=== PATIENT | male | born 1960 | race Caucasian/White ===

== ENCOUNTER 2016-10-16 08:51 | Emergency (ER) | payer OTHER ==
[2016-10-16 08:59] VITALS: BP 153/97; PULSE 89; TEMP 97.5; BMI 28.1
--- NOTE | 2016-10-16 10:01 | PDOC ---
History of Present Illness - General Chief Complaint: Back Pain Stated Complaint: RT SIDE PAIN Time Seen by Provider: 10/16/16 09:23 History Source: Patient Exam Limitations: No Limitations - History of Present Illness Initial Comments: 10/16/16 10:23 Chief complaint: Intermittent right lower back pain times one week History of present illness: Patient is a 56-year-old male with no significant medical history here today complaining of intermittent pinching like sensation to his right lower back that radiates slightly laterally times one week mostly with movement. Patient reports that last week at work he felt the sensation that lasted intermittently through the day. Patient last felt this yesterday now pain currently. Patient is any fever, nausea, vomiting or any difficulty urinating. She was seen here on 11/25/2015 and had elevated liver function AST of 38 and ALT of 112 patient also had an ultrasound of his gallbladder at that time and had fatty liver versus hepatocellular disease of no gallstones were identified an underlying dilatation the common bile doctor in 1 cm right renal cyst was noted per Dr. Soto. Patient has since had liver function test done with his primary care provider and they had improved. 10/16/16 10:26 10/16/16 11:56 Timing/Duration: 1 week, intermittent (for one week ) Severity: moderate (rt. lower back pain radiates slightly laterally with movement mostly ) Associated Symptoms: reports: denies symptoms Past History - Past Medical History Allergies/Adverse Reactions: Allergies Allergy/AdvReac Type Severity Reaction Status Date / Time No Known Allergies Allergy Verified 10/16/16 08:54 Home Medications: Ambulatory Orders NK [No Known Home Medication] 11/25/15 - Psycho/Social/Smoking Cessation Hx Anxiety: No Suicidal Ideation: No Smoking History: Former smoker Have you smoked in the past 12 months: No If you are a former smoker, when did you quit?: 7 YRS Information on smoking cessation initiated: No Hx Alcohol Use: No Drug/Substance Use Hx: No Substance Use Type: None Review of Systems - Review of Systems Able to Perform ROS?: Yes Constitutional: No: Symptoms Reported HEENTM: No: Symptoms Reported Respiratory: No: Symptoms reported Cardiac (ROS): No: Symptoms Reported ABD/GI: No: Symptoms Reported : No: Symptoms Reported Musculoskeletal: Yes: Back Pain (right lower back radiates slightly laterally with movement intermittently for one week worse with movment) Integumentary: No: Symptoms Reported Neurological: No: Symptoms reported *Physical Exam - Vital Signs Last Vital Signs Temp Pulse Resp BP Pulse Ox 97.5 F L 89 19 153/97 98 10/16/16 08:54 10/16/16 08:54 10/16/16 08:54 10/16/16 08:54 10/16/16 08:54 - Physical Exam General Appearance: Yes: Appropriately Dressed Respiratory/Chest: positive: Lungs Clear, Normal Breath Sounds. negative: Chest Tender, Respiratory Distress Cardiovascular: positive: Regular Rhythm, Regular Rate, S1, S2 Gastrointestinal/Abdominal: positive: Normal Bowel Sounds, Soft. negative: Tender, Organomegaly, Distended, Guarding, Rebound, Tenderness, Hepatomegaly, Spleenomegaly Musculoskeletal: positive: Normal Inspection. negative: CVA Tenderness, CVA Tenderness (R), CVA Tenderness (L), Decreased Range of Motion, Muscle Spasm, Vertebral Tenderness Extremity: positive: Normal Capillary Refill, Normal Inspection, Normal Range of Motion Integumentary: positive: Normal Color Neurologic: positive: Alert, Normal Response, Motor Strength 5/5, Respond to painful stimul (legs b/l ), Responsive. negative: Numbness, Sensory Deficit (b/ l ) Deep Tendon Reflexes: Ankle (L): 4+, Ankle (R): 4+, Knee (L): 4+, Knee (R): 4+ Medical Decision Making - Medical Decision Making 10/16/16 11:55 10/16/16 11:56 Patient is a 56-year-old male with no significant medical history here today complaining of intermittent pinching like sensation to his right lower back that radiates slightly laterally times one week mostly with movement. Patient reports that last week at work he felt the sensation that lasted intermittently through the day. Patient last felt this yesterday now pain currently. Patient is any fever, nausea, vomiting or any difficulty urinating. She was seen here on 11/25/2015 and had elevated liver function AST of 38 and ALT of 112 patient also had an ultrasound of his gallbladder at that time and had fatty liver versus hepatocellular disease of no gallstones were identified an underlying dilatation the common bile doctor in 1 cm right renal cyst was noted per Dr. Soto. Patient has since had liver function test done with his primary care provider and they had improved. Rule outs enlarged rt. kidney cyst and hematuria PLAN: Urine analysis Kidney ultrasound rt. mid pole kidney cyst 1.3 cm slightly larged than 11/25/15 no other abnormality noted per Aguila Cheek will have pt. follow up with nephrology 10/16/16 11:56 10/16/16 11:58 *DC/Admit/Observation/Transfer Diagnosis at time of Disposition: Kidney cysts Back pain Qualifiers: Back pain location: low back pain Chronicity: unspecified Back pain laterality : right Sciatica presence: without sciatica Qualified Code(s): M54.5 - Low back pain - Discharge Dispostion Disposition: HOME Condition at time of disposition: Stable - Patient Instructions Additional Instructions: Follow-up with urologist for further evaluation Avoid bending from waist picking up things use proper lifting technique and when turning your upper torso to to pick something up return to entire body towards direction chewer picking something up from Return to emergency room if pain worsens or any new symptoms develop Patient voiced understanding of discharge instructions and all questions were answered
[2016-10-16 11:28] LABS: URINE APPEARANCE CLEAR; URINE BILIRUBIN NEGATIVE (NEGATIVE); URINE BLOOD NEGATIVE (NEGATIVE); URINE COLOR STRAW; URINE GLUCOSE (UA) NEGATIVE (NEGATIVE); URINE KETONE NEGATIVE (NEGATIVE); URINE LEUK ESTERASE NEGATIVE (NEGATIVE); URINE NITRITE NEGATIVE (NEGATIVE); URINE PROTEIN NEGATIVE (NEGATIVE); URINE UROBILINOGEN NEGATIVE E.U./dl (0.2-1.0)
== END 2016-10-16 12:24 | disposition home or self-care (01) ==
LOC: JERFT 08:51
DX: N28.1 Cyst of kidney, acquired (principal); Z87.891 Personal history of nicotine dependence
CPT/HCPCS: 76775-TC; 81003; 99281-25

== ENCOUNTER 2017-11-17 07:42 | Day surgery (SDC) | payer OTHER ==
[2017-11-16 12:04] VITALS: BMI 27.3
[2017-11-17] MEDS ORDERED: PROPOFOL 20 ML ONE ×2 (10:09)
[2017-11-17] MEDS ORDERED: LIDOCAINE HCL 2% (20ML MULTI-DOSE VIAL) NR ONE (10:09)
[2017-11-17 10:13] VITALS: TEMP 97.3
[2017-11-17 10:57] VITALS: BP 116/72; PULSE 71
[2017-11-17 11:44] LABS: ALBUMIN 4.1 g/dl (3.4-5.0); BILIRUBIN,DIRECT 0.2 mg/dL (0.0-0.2)
[2017-11-17 11:47] LABS: BILIRUBIN,TOTAL 0.8 mg/dL (0.2-1.0); TOT PROT 7.4 g/dl (6.4-8.2)
[2017-11-18 08:07] LABS: ALPHA-1-ANTITRYPSIN 123 mg/dL (90-200); SERUM IRON SATURATION 33 % (15-55); TOTAL IRON BINDING CAPACITY 279 ug/dL (250-450); UIBC 186 ug/dL (111-343)
[2017-11-19 10:16] LABS: ALPHA 2 MACROGLOBULINS,QN 187 mg/dL (110-276); ALT(SGPT)P5P 57 IU/L (0-55); CHOLESTEROL TOTAL 203 mg/dL (100-199); FIBROSIS SCORE 0.33 (0.00-0.21); GGT= 27 IU/L (0-65); GLUCOSE SERUM 91 mg/dL (65-99); HEIGHT 67 Inches (.); WEIGHT- 175 LBS (.)
[2017-11-19 16:30] LABS: ALPHA-1-ANTITRYPSIN 124 mg/dL (90-200)
== END 2017-11-17 10:57 | disposition home or self-care (01) ==
LOC: JASU-ENDO 07:42
PROVIDERS: ATTEND Internal Medicine Gastroenterology
PROC: 0DJD8ZZ Inspection of Lower Intestinal Tract, Via Natural or Artificial Opening Endoscopic (ICD-10-PCS; principal; 2017-11-17 09:00)
DX: Z12.11 Encounter for screening for malignant neoplasm of colon (principal); K57.30 Diverticulosis of large intestine without perforation or abscess without bleeding; K64.8 Other hemorrhoids
CPT/HCPCS: 36415; 80076; 82103; 82104; 82172; 82247; 82390; 82465; 82728; 82947; 82977; 83010; 83540; 83550; 83883; 84450; 84460; 84478; 86704; 86706; 86708; 87340

== ENCOUNTER 2018-07-10 11:31 | Emergency (ER) | payer OTHER ==
[2018-07-10 11:46] VITALS: BP 134/89; PULSE 88; TEMP 97.5; BMI 26.2
--- NOTE | 2018-07-10 12:00 | PDOC ---
History of Present Illness - General Chief Complaint: Eye Problem Stated Complaint: LT EYE PROBLEM Time Seen by Provider: 07/10/18 11:49 History Source: Patient Exam Limitations: No Limitations - History of Present Illness Initial Comments: CHIEF COMPLAINT: 58 y/o male with painful bump to left lower eye x 3 days. HISTORY OF PRESENT ILLNESS: The patient states he had this same thing last year and he had to see an yard goods salesperson to have it "popped". He hasn't been doing anything for it yet. He denies changes in vision. 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 Vital signs on arrival are within normal limits. REVIEW OF SYSTEMS: GENERAL/CONSTITUTIONAL: No fever/chills. No weakness. No weight change. HEAD, EYES, EARS, NOSE AND THROAT: +painful bump to bottom of left eye. No change in vision. No ear discharge. No sore throat. PHYSICAL EXAM: GENERAL: The patient is awake, alert, and fully oriented, in no acute distress. HEAD: Normal with no signs of trauma. ENT: Pupils equal, round and reactive to light, extraocular movements intact, sclera anicteric, conjunctiva clear. Hordeolum to bottom, medial, inner left eyelid with some inferior superficial orbital swelling. No ptosis. No proptosis. No entrapment Past History - Past Medical History Allergies/Adverse Reactions: Allergies Allergy/AdvReac Type Severity Reaction Status Date / Time No Known Allergies Allergy Verified 07/10/18 11:46 Home Medications: Ambulatory Orders [place]-3 Fatty Acids/Fish Oil [Fish Oil 1,000 mg Capsule] 1 cap PO DAILY Simvastatin 20 mg PO DAILY 11/16/17 Prednisone [Deltasone] 40 mg PO DAILY #8 tablet 07/10/18 Anemia: No Asthma: No Cancer: No Cardiac Disorders: No CVA: No COPD: No CHF: No Dementia: No Diabetes: No GI Disorders: No Disorders: Yes (ENLARGED PROSTATE) HTN: No Hypercholesterolemia: Yes Liver Disease: Yes (FATTY LIVER) Seizures: No Thyroid Disease: No - Suicide/Smoking/Psychosocial Hx Smoking History: Never smoked Have you smoked in the past 12 months: No If you are a former smoker, when did you quit?: 2008 Information on smoking cessation initiated: No Hx Alcohol Use: Yes (WINE DAILY) Drug/Substance Use Hx: No (EX-IVDA HEROIN AND COCAINE,PREVIOUSLY ON METHADONE) Substance Use Type: Cocaine, Heroin Hx Substance Use Treatment: No *Physical Exam - Vital Signs Last Vital Signs Temp Pulse Resp BP Pulse Ox 97.5 F L 88 18 134/89 99 07/10/18 11:32 18 11:32 07/10/18 11:32 07/10/18 11:32 07/10/18 11:32 Medical Decision Making - Medical Decision Making A/P: 58 y/o male with left internal lower hordeolum. Suggested warm compresses. Will send rx for prednisone. Instructed him to call Dr. Natalia Garcia either today or thursday to potentially have it "popped" and instructed him to return to the ER with any worsening or concerning symptoms. The patient verbalizes understanding of all instructions, has no further questions and is awaiting discharge. *DC/Admit/Observation/Transfer Diagnosis at time of Disposition: Hordeolum internum of left lower eyelid - Discharge Dispostion Disposition: HOME Condition at time of disposition: Good - Prescriptions Prescriptions: Prednisone [Deltasone] 40 mg PO DAILY #8 tablet - Referrals Referrals: Malathi Kumar MD [Staff Physician] - - Patient Instructions Printed Discharge Instructions: DI for Hordeolum Additional Instructions: Discharge Instructions: -A prescription for prednisone has been sent to your pharmacy -Please apply warm compresses to your eye 4-5 times per day -Call Dr. Hansen either today or on Thursday to schedule follow up appointment - Post Discharge Activity
== END 2018-07-10 12:07 | disposition home or self-care (01) ==
LOC: JERFT 11:31
DX: H00.025 Hordeolum internum left lower eyelid (principal)
CPT/HCPCS: 99281-25

== ENCOUNTER 2019-02-17 08:32 | Emergency (ER) | payer OTHER ==
[2019-02-17 08:56] VITALS: BP 118/78; PULSE 82; TEMP 97.9; BMI 25.8
--- NOTE | 2019-02-17 09:30 | PDOC ---
History of Present Illness - General Chief Complaint: Eye Problem Stated Complaint: LT EYE SWOLLEN Time Seen by Provider: 02/17/19 09:08 History Source: Patient Exam Limitations: Clinical Condition - History of Present Illness Initial Comments: Patient with no significant past medical history present with complaint of three -day history of swelling and redness to left upper eyelid. Denies blurry vision or change in vision.Denies discharge from eye.. Denies contact or corrective lens use. Denies trauma or injury to eye. Timing/Duration: other (2 days) Past History - Past Medical History Allergies/Adverse Reactions: Allergies Allergy/AdvReac Type Severity Reaction Status Date / Time No Known Allergies Allergy Verified 02/17/19 08:52 Home Medications: Ambulatory Orders [place]-3 Fatty Acids/Fish Oil [Fish Oil 1,000 mg Capsule] 1 cap PO DAILY Simvastatin 20 mg PO DAILY 11/16/17 Erythromycin 0.5% Eye Ointment [Erythromycin 0.5% Eye Ointment -] 1 applic TP BID 5 Days #1 tube 02/17/19 Anemia: No Asthma: No Cancer: No Cardiac Disorders: No CVA: No COPD: No CHF: No Dementia: No Diabetes: No GI Disorders: No Disorders: Yes (ENLARGED PROSTATE) HTN: No Hypercholesterolemia: Yes Liver Disease: Yes (FATTY LIVER) Seizures: No Thyroid Disease: No - Suicide/Smoking/Psychosocial Hx Smoking History: Former smoker Have you smoked in the past 12 months: No If you are a former smoker, when did you quit?: 2008 Information on smoking cessation initiated: No Hx Alcohol Use: No Drug/Substance Use Hx: No Substance Use Type: Cocaine, Heroin Hx Substance Use Treatment: No Review of Systems - Review of Systems Able to Perform ROS?: Yes Is the patient limited [place] proficient: No Constitutional: No: Weakness HEENTM: Yes: Symptoms Reported, See HPI, Eye Pain (left upper eyelid). No: Blurred Vision, Tearing, Recent change in vision, Double Vision, Cataracts Respiratory: No: Symptoms reported Cardiac (ROS): No: Symptoms Reported ABD/GI: No: Nausea, Vomiting Musculoskeletal: No: Symptoms Reported, Muscle Weakness Integumentary: Yes: Symptoms Reported, See HPI, Erythema (left upper eyelid) Neurological: No: Headache, Numbness, Paresthesia, Tingling All Other Systems: Reviewed and Negative *Physical Exam - Vital Signs Last Vital Signs Temp Pulse Resp BP Pulse Ox 97.9 F 82 18 118/78 100 02/17/19 08:53 02/17/19 08:53 02/17/19 08:53 02/17/19 08:53 02/17/19 08:53 - Physical Exam Comments: 02/17/19 10:25 GENERAL: Well developed, well nourished. Awake and alert. No acute distress. HEENT: Mild swelling with mild erythema to left upper eyelids. No conjunctiva erythema. 20/25 visual acuity in left eye, right eye and 20/20 in bilateral eyes. Lower eyelid and right eyelids normal. Normocephalic, atraumatic. PERRLA, EOMI. Sclera are non-icteric. Moist mucous membranes. Oropharynx is clear. NECK: Supple. Full ROM. CARDIOVASCULAR: Regular rate and rhythm. No murmurs, rubs, or gallops. Distal pulses are 2+ and symmetric. PULMONARY: No evidence of respiratory distress. Lungs clear to auscultation bilaterally. No wheezing, rales or rhonchi. MUSCULOSKELETAL Normal range of motion at all joints. SKIN: Warm and dry. Normal capillary refill. Mild erythema to left upper eyelid NEUROLOGICAL: Alert, awake, appropriate. Gait is normal without ataxia. PSYCHIATRIC: Cooperative. Good eye contact. Appropriate mood General Appearance: Yes: Nourished, Appropriately Dressed. No: Apparent Distress Medical Decision Making - Medical Decision Making 02/17/19 10:36 Patient with no significant past medical history present with complaint of three -day history of swelling and redness to left upper eyelid. Denies blurry vision or change in vision. Exam significant for mild redness was mild swelling to left upper eyelid. No conjunctiva erythema. Normal visual acuity on exam. Symptoms likely blepharitis and patient stable for discharge on topical erythromycin antibiotics with ophthalmology follow-up. *DC/Admit/Observation/Transfer Diagnosis at time of Disposition: Blepharitis of eyelid of left eye Qualifiers: Blepharitis type: unspecified type Eyelid: upper Qualified Code(s): H01.004 - Unspecified blepharitis left upper eyelid - Discharge Dispostion Disposition: HOME Condition at time of disposition: Stable Decision to Admit order: No - Prescriptions Prescriptions: Erythromycin 0.5% Eye Ointment [Erythromycin 0.5% Eye Ointment -] 1 applic TP BID 5 Days #1 tube - Referrals Referrals: Roel Loyola MD [Primary Care Provider] - Justus Aguilar MD [Staff Physician] - - Patient Instructions Printed Discharge Instructions: DI for Blepharitis Additional Instructions: Use prescribed antibiotics ointment as prescribed for eye redness and swelling. Apply warm compresses to it 2-3 times a day as needed for swelling. Follow-up referred ophthalmology if no improvement in 3 days - Post Discharge Activity
== END 2019-02-17 09:34 | disposition home or self-care (01) ==
LOC: JERFT 08:32
DX: H01.004 Unspecified blepharitis left upper eyelid (principal)
CPT/HCPCS: 99281-25